=== PATIENT | female | born 1995 | race African-American/Black ===

== ENCOUNTER 2017-10-21 08:55 | Outpatient (CLI) | payer BC, OTHER ==
--- NOTE | 2017-10-21 11:07 | RAD ---
CHEST TWO VIEWS: History: Dyspnea. Comparison: 10-02-14 FINDINGS: Improving right middle and right lower lobe airspace opacities from the comparison examination. No pn eumothorax. No effusion. Cardiac silhouette and mediastinal contours are within normal limits. IMPRESSION: No acute intrathoracic abnormality. Resolved infiltration from 2014. POS: [facility]
== END 2017-10-21 08:56 | disposition home or self-care (01) ==
LOC: RAD 08:55
PROVIDERS: ATTEND Internal Medicine Critical Care Medicine
DX: R06.00 Dyspnea, unspecified (principal)
CPT/HCPCS: 36415; 71046; 82785; 85007; 85027; 86606

== ENCOUNTER 2021-04-22 17:49 | Emergency (ER) | payer OTHER ==
[2021-04-22] MEDS ORDERED: Ibuprofen 200 MG TAB ONE (18:59)
[2021-04-22] MEDS ORDERED: Acetaminophen 500 MG TAB ONE (18:59)
[2021-04-22 19:48] LABS: #Basophils 0.1 thou/uL (0.0-0.2); #Eosinphils 0.2 thou/uL (0.0-0.7); #Lymphocytes 2.2 thou/uL (1.20-3.40); #Monocytes 0.9 thou/uL (0.11-0.59); #Neutrophils 9.8 thou/uL (1.40-6.50); %Basophils 0.6 % (0.0-1.0); %Eosinophils 1.5 % (0.0-10.0); %Lymphocytes 16.3 % (21.0-51.0); %Neutrophils 74.6 % (42.0-75.0); BHCG - Serum Negative (NEGATIVE); Hemoglobin 10.1 g/dL (12.0-16.0); Mean Corpuscular Hemoglobin 26.1 pg (27.0-31.0); Mean Platelet Volume 9.4 fL (7.4-10.4); Platelet Count 276 thou/uL (130-400); Pregs Control Background? CLEAR/WHITE (CLR/WHITE); Pregs Control Bar Appear? YES (CONTROL BAR); Red Blood Cell (RBC) Count 3.88 mill/uL (4.20-5.40); White Blood Cell (WBC) Count 13.2 thou/uL (4.8-10.8)
[2021-04-22 20:06] LABS: ALT (SGPT) 34 U/L (8-55); AST (SGOT) 23 U/L (5-34); Albumin 3.4 g/dL (3.5-5.0); Alkaline Phosphatase 87 U/L (40-110); Anion Gap 11 mmol/L (10-20); BUN (Urea Nitrogen) 7 mg/dL (7.0-18.7); Bilirubin, Total 0.6 mg/dL (0.2-1.2); Calc. Creatinine Clearance 0 mL/min (70-130); Calcium 8.9 mg/dL (7.8-10.44); Carbon Dioxide 23 mmol/L (22-29); Chloride 102 mmol/L (98-107); Globulin 3.9 g/dL (2.4-3.5); Glucose 94 mg/dL (70-105); Potassium 3.4 mmol/L (3.5-5.1); Protein, Total 7.3 g/dL (6.0-8.3); Sodium 133 mmol/L (136-145)
[2021-04-23 01:04] LABS: SARS-CoV-2 PCR by NAA DETECTED (NotDetected)
== END 2021-04-22 22:35 | disposition home or self-care (01) ==
LOC: ERS 17:49
DX: U07.1 COVID-19 (principal); J12.82 Pneumonia due to coronavirus disease 2019; J45.909 Unspecified asthma, uncomplicated; E66.9 Obesity, unspecified
CPT/HCPCS: 36415; 71045; 80053; 84484; 84703; 85025; 93005; U0003; U0005

== ENCOUNTER 2022-07-01 05:57 | Emergency (ER) | payer OTHER ==
[~2022-07-01 05:57] MED LIST: Acetaminophen 500 MG TAB ONE; Ketorolac Tromethamine 30 MG/ML VIAL ONE
== END 2022-07-01 06:00 | disposition home or self-care (01) ==
LOC: ERS 05:57
DX: K04.7 Periapical abscess without sinus (principal); R03.0 Elevated blood-pressure reading, without diagnosis of hypertension
CPT/HCPCS: 96372; 99283; J1885